=== PATIENT | male | born 1950 | race Caucasian/White ===

== ENCOUNTER 2023-02-17 09:41 | Outpatient (AMB) | payer MEDICARE, OTHER, SELFPAY ==
--- NOTE | 2023-02-17 09:46 | HO.NEPHOV_ITS ---
HPI HPI Comments History of Present Illness Details I had the privilege to seeing Carlos in follow-up of his chronic kidney disease. His hemoglobin A1c has gone up over 9. His blood sugar control continues to be suboptimal. His blood pressure is at goal. He does not have any hypoglycemias. He is just on Januvia for blood sugar. He is tolerating lisinopril and metoprolol. His serum creatinine remains stable. He does not have any hyperkalemia. He denies chest pain, shortness of breath, proximal nocturnal dyspnea, orthopnea, pedal edema or orthostatic symptoms. He avoids nonsteroidal anti-inflammatory medications. Otherwise he feels well. [facility] Medical History (Updated 02/17/23 @ 21:01 by Nimesh Lundberg MD) Diabetes mellitus Hypertension Surgical History (Updated 02/17/23 @ 09:56 by Ute Garay MA) History of hernia repair History of vasectomy History of removal of cyst History of cataract surgery Social History (Updated 02/17/23 @ 09:56 by Ute Garay MA) Alcohol intake: never Patient Tobacco Use Status: Never used Tobacco Vital Signs 02/17/23 09:48 Height 5 ft 9 in Weight 166 lb BMI 24.5 BP 174/82 H Blood Pressure Location Lt brachial Position Sitting Pulse 69 Pulse Oximetry (%) 98 Oxygen Delivery Method Room Air Physical Exam Vital Signs: Last Vital Signs Pulse 69 02/17/23 09:48 BP 174/82 H 02/17/23 09:48 Pulse Ox 98 02/17/23 09:48 Oxygen Delivery Method Room Air 02/17/23 09:48 BMI result Body Mass Index 24.5 Const General: comfortable and no acute distress Orientation/consciousness: patient oriented x3 HEENT Head: Yes normocephalic Mouth: Normal oral and palatal mucosa present Eyes EOM: EOMs intact bilaterally Neck Neck: Yes supple Resp Auscultation: clear to auscultation bilaterally Cardio Jugular venous distension: no JVD Rate: regular rate GI Palpation (GI): Soft to palpation Auscultation: normal bowel sounds General: Yes no CVA tenderness Back/Spine/Pelvis Back: no CVA tenderness Skin General skin exam: no rashes or lesions noted Neuro General: patient oriented x3 and moves all extremities Extrem General: Yes no pedal edema Assessment & Plan Assessment & Plan (1) CKD stage 3 secondary to diabetes: Code(s): E11.22 - Type 2 diabetes mellitus with diabetic chronic kidney disease; N18.30 - Chronic kidney disease, stage 3 unspecified (2) Hypertension: Code(s): I10 - Essential (primary) hypertension Qualifiers: Hypertension type: primary hypertension Qualified Code(s): I10 - Essential (primary) hypertension Plan Carlos has 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 His blood sugars are uncontrolled he is currently on Januvia. I started him on Jardiance. He is on SORAYA-inhibitor as well. I explained to him that he needs to maintain good hydration. He is on statins. He may need to be seen by Endocrinology. His blood pressure is at goal. I did not make any other medication changes today. Time spent retrieving data, patient encounter and document 29 minutes. All questions answered. Follow-up lab work ordered. Follow-up given. Orders: Orders Hemoglobin A1c Today E11.22 - Type 2 diabetes mellitus with diabetic chronic kidney disease, N18.30 - Chronic kidney disease, stage 3 unspecified Creatinine Today E11.22 - Type 2 diabetes mellitus with diabetic chronic kidney disease, I10 - Essential (primary) hypertension, N18.30 - Chronic kidney disease, stage 3 unspecified Blood Urea Nitrogen Today E11.22 - Type 2 diabetes mellitus with diabetic chronic kidney disease, I10 - Essential (primary) hypertension, N18.30 - Chronic kidney disease, stage 3 unspecified Electrolytes Today E11.22 - Type 2 diabetes mellitus with diabetic chronic kidney disease, I10 - Essential (primary) hypertension, N18.30 - Chronic kidney disease, stage 3 unspecified Medications: New empagliflozin (Jardiance) 5 mg (1/2 x 10 mg) PO DAILY 30 tabs 3RF Coding Level of Care Code Est Pt Level 4 (75150) Diagnoses CKD stage 3 secondary to diabetes E11.22; N18.30 Primary hypertension I10 Hypertension type: primary hypertension Results Reviewed Nephrology Results: No Data to Display
[2023-02-17 09:48] VITALS: BP 174/82; PULSE 69; O2SAT 98; BMI 24.5
== END 2023-02-17 10:33 | disposition home or self-care (01) ==
PROVIDERS: PCP Internal Medicine; Visit Provider Internal Medicine Nephrology
DX: E11.22 Type 2 diabetes mellitus with diabetic chronic kidney disease (principal); N18.30 Chronic kidney disease, stage 3 unspecified; I10 Essential (primary) hypertension
CPT/HCPCS: 99214

== ENCOUNTER → 2023-02-17 09:41 | Outpatient (BNVA) | payer MEDICARE, OTHER, SELFPAY | PROVIDERS: PCP Internal Medicine; Visit Provider Internal Medicine Nephrology | DX: E11.22 Type 2 diabetes mellitus with diabetic chronic kidney disease (principal); I12.9 Hypertensive chronic kidney disease with stage 1 through stage 4 chronic kidney disease, or unspecified chronic kidney disease; N18.30 Chronic kidney disease, stage 3 unspecified | CPT/HCPCS: 99212 ==

== ENCOUNTER 2023-05-24 11:53 | Outpatient (AMB) | payer MEDICARE, OTHER, SELFPAY ==
[2023-05-24 12:00] VITALS: BP 162/82; PULSE 57; O2SAT 97; BMI 23.8
--- NOTE | 2023-05-24 12:00 | HO.NEPHOV ---
HPI HPI Comments History of Present Illness Details I had the privilege to seeing Carlos in follow-up of his chronic kidney disease. His blood sugar control continues to be suboptimal but better. His blood pressure is at goal. He does not have any hypoglycemias. He is just on Januvia for blood sugar. He is tolerating lisinopril and metoprolol. His serum creatinine remains stable. He does not have any hyperkalemia. He denies chest pain, shortness of breath, proximal nocturnal dyspnea, orthopnea, pedal edema or orthostatic symptoms. He avoids nonsteroidal anti-inflammatory medications. Otherwise he feels well. [facility] Medical History (Updated 02/17/23 @ 21:01 by Nimesh Lundberg MD) Diabetes mellitus Hypertension Surgical History History of hernia repair History of vasectomy History of removal of cyst History of cataract surgery Social History Alcohol intake: never Patient Tobacco Use Status: Never used Tobacco Vital Signs 05/24/23 12:00 Height 5 ft 9 in Weight 161 lb 2 oz BMI 23.8 BP 162/82 H Blood Pressure Location Lt brachial Position Sitting Pulse 57 Pulse Source Pulse Oximeter Pulse Oximetry (%) 97 Oxygen Delivery Method Room Air Physical Exam Vital Signs: Last Vital Signs Pulse 57 05/24/23 12:00 BP 162/82 H 05/24/23 12:00 Pulse Ox 97 05/24/23 12:00 Oxygen Delivery Method Room Air 05/24/23 12:00 BMI result Body Mass Index 23.8 Const General: comfortable and no acute distress Orientation/consciousness: patient oriented x3 HEENT Head: Yes normocephalic Mouth: Normal oral and palatal mucosa present Eyes EOM: EOMs intact bilaterally Neck Neck: Yes supple Resp Auscultation: clear to auscultation bilaterally Cardio Jugular venous distension: no JVD Rate: regular rate GI Palpation (GI): Soft to palpation Auscultation: normal bowel sounds General: Yes no CVA tenderness Back/Spine/Pelvis Back: no CVA tenderness Skin General skin exam: no rashes or lesions noted Neuro General: patient oriented x3 and moves all extremities Extrem General: Yes no pedal edema Assessment & Plan Assessment & Plan (1) CKD stage 3 secondary to diabetes: Code(s): E11.22 - Type 2 diabetes mellitus with diabetic chronic kidney disease; N18.30 - Chronic kidney disease, stage 3 unspecified (2) Hypertension: Code(s): I10 - Essential (primary) hypertension Qualifiers: Hypertension type: primary hypertension Qualified Code(s): I10 - Essential (primary) hypertension Plan Carlos has 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 His blood sugars are uncontrolled he is currently on Januvia. He should continue Jardiance which I plan to increase it to 5 mg. He is on SORAYA-inhibitor as well. I explained to him that he needs to maintain good hydration. He is on statins. His blood pressure is at goal. I did not make any other medication changes today. Orders: Orders Creatinine Today E11.22 - Type 2 diabetes mellitus with diabetic chronic kidney disease, I10 - Essential (primary) hypertension, N18.30 - Chronic kidney disease, stage 3 unspecified Electrolytes Today E11.22 - Type 2 diabetes mellitus with diabetic chronic kidney disease, I10 - Essential (primary) hypertension, N18.30 - Chronic kidney disease, stage 3 unspecified Blood Urea Nitrogen Today E11.22 - Type 2 diabetes mellitus with diabetic chronic kidney disease, I10 - Essential (primary) hypertension, N18.30 - Chronic kidney disease, stage 3 unspecified Hemoglobin A1c Today E11.22 - Type 2 diabetes mellitus with diabetic chronic kidney disease, I10 - Essential (primary) hypertension, N18.30 - Chronic kidney disease, stage 3 unspecified Coding Level of Care Code Est Pt Level 4 (39916) Diagnoses CKD stage 3 secondary to diabetes E11.22; N18.30 Primary hypertension I10 Hypertension type: primary hypertension Results Reviewed Nephrology Results: No Data to Display
== END 2023-05-24 12:18 | disposition home or self-care (01) ==
PROVIDERS: PCP Internal Medicine; Visit Provider Internal Medicine Nephrology
DX: E11.22 Type 2 diabetes mellitus with diabetic chronic kidney disease (principal); N18.30 Chronic kidney disease, stage 3 unspecified; I10 Essential (primary) hypertension
CPT/HCPCS: 99214

== ENCOUNTER → 2023-05-24 11:53 | Outpatient (BNVA) | payer MEDICARE, OTHER, SELFPAY | PROVIDERS: PCP Internal Medicine; Visit Provider Internal Medicine Nephrology | DX: E11.22 Type 2 diabetes mellitus with diabetic chronic kidney disease (principal); I12.9 Hypertensive chronic kidney disease with stage 1 through stage 4 chronic kidney disease, or unspecified chronic kidney disease; N18.30 Chronic kidney disease, stage 3 unspecified | CPT/HCPCS: 99212 ==

== ENCOUNTER 2023-09-22 09:42 | Outpatient (AMB) | payer MEDICARE, OTHER, SELFPAY ==
--- NOTE | 2023-09-22 09:54 | HO.NEPHOV ---
Vital Signs 09/22/23 09:55 Height 5 ft 9 in Weight 156 lb BMI 23.0 BP 142/74 H Blood Pressure Location Lt brachial Position Sitting Pulse 73 Pulse Source Pulse Oximeter Pulse Oximetry (%) 97 Oxygen Delivery Method Room Air Intake Visit Reasons: 4 Month F/U/ LVM Office Service Coordinator Required: No Accompanied by: Self / Same As Patient Allergies No Known Allergies Allergy (Verified 09/22/23 09:56) HPI Comments Details: I had the privilege to seeing Carlos in follow-up of his chronic kidney disease. His blood sugar control continues to be suboptimal but better. His blood pressure is at goal. He does not have any hypoglycemias. He is just on Januvia for blood sugar. He is tolerating lisinopril and metoprolol. His serum creatinine had been stable. He does not have any hyperkalemia. He denies chest pain, shortness of breath, proximal nocturnal dyspnea, orthopnea, pedal edema or orthostatic symptoms. He avoids nonsteroidal anti-inflammatory medications. Otherwise he feels well. [facility] Medical History (Updated 02/17/23 @ 21:01 by Nimesh Lundberg MD) Diabetes mellitus Hypertension Surgical History History of hernia repair History of vasectomy History of removal of cyst History of cataract surgery Social History Alcohol intake: never Patient Tobacco Use Status: Never used Tobacco Physical Exam Vital Signs: Last Vital Signs Pulse 73 09/22/23 09:55 BP 142/74 H 09/22/23 09:55 Pulse Ox 97 09/22/23 09:55 Oxygen Delivery Method Room Air 09/22/23 09:55 BMI result Body Mass Index 23.0 Const General: comfortable and no acute distress Orientation/consciousness: patient oriented x3 HEENT Head: Yes normocephalic Mouth: Normal oral and palatal mucosa present Eyes EOM: EOMs intact bilaterally Neck Neck: Yes supple Resp Auscultation: clear to auscultation bilaterally Cardio Jugular venous distension: no JVD Rate: regular rate GI Palpation (GI): Soft to palpation Auscultation: normal bowel sounds General: Yes no CVA tenderness Back/Spine/Pelvis Back: no CVA tenderness Skin General skin exam: no rashes or lesions noted Neuro General: patient oriented x3 and moves all extremities Extrem General: Yes no pedal edema Results Reviewed Nephrology Results: No Data to Display Assessment & Plan Assessment & Plan (1) CKD stage 3 secondary to diabetes: Code(s): E11.22 - Type 2 diabetes mellitus with diabetic chronic kidney disease; N18.30 - Chronic kidney disease, stage 3 unspecified Category: Medical (2) Hypertension: Code(s): I10 - Essential (primary) hypertension Category: Medical Qualifiers: Hypertension type: primary hypertension Qualified Code(s): I10 - Essential (primary) hypertension Plan Carlos has 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 His blood sugars are uncontrolled he is currently on Januvia. He should continue Jardiance which I increased to 12.5 mg daily. He is on SORAYA-inhibitor as well. I explained to him that he needs to maintain good hydration. He is on statins. His blood pressure is at goal. I did not make any other medication changes today. Orders: Orders Creatinine Today E11.22 - Type 2 diabetes mellitus with diabetic chronic kidney disease, I10 - Essential (primary) hypertension, N18.30 - Chronic kidney disease, stage 3 unspecified Blood Urea Nitrogen Today E11.22 - Type 2 diabetes mellitus with diabetic chronic kidney disease, I10 - Essential (primary) hypertension, N18.30 - Chronic kidney disease, stage 3 unspecified Electrolytes Today E11.22 - Type 2 diabetes mellitus with diabetic chronic kidney disease, I10 - Essential (primary) hypertension, N18.30 - Chronic kidney disease, stage 3 unspecified Medications: Changed From empagliflozin (Jardiance) 5 mg (1/2 x 10 mg) PO DAILY 30 tabs 10RF To empagliflozin 12.5 mg (1/2 x 25 mg) PO DAILY 30 tabs 10RF Coding Level of Care Code Est Pt Level 4 (60488) Diagnoses CKD stage 3 secondary to diabetes E11.22; N18.30 Primary hypertension I10 Hypertension type: primary hypertension
[2023-09-22 09:55] VITALS: BP 142/74; PULSE 73; O2SAT 97; BMI 23.0
== END 2023-09-22 10:23 | disposition home or self-care (01) ==
PROVIDERS: PCP Internal Medicine; Visit Provider Internal Medicine Nephrology
DX: E11.22 Type 2 diabetes mellitus with diabetic chronic kidney disease (principal); N18.30 Chronic kidney disease, stage 3 unspecified; I10 Essential (primary) hypertension
CPT/HCPCS: 99214

== ENCOUNTER → 2023-09-22 09:42 | Outpatient (BNVA) | payer MEDICARE, OTHER, SELFPAY | PROVIDERS: PCP Internal Medicine; Visit Provider Internal Medicine Nephrology | DX: E11.22 Type 2 diabetes mellitus with diabetic chronic kidney disease (principal); I12.9 Hypertensive chronic kidney disease with stage 1 through stage 4 chronic kidney disease, or unspecified chronic kidney disease; N18.30 Chronic kidney disease, stage 3 unspecified | CPT/HCPCS: 99212 ==

== ENCOUNTER 2024-04-12 13:44 | Outpatient (AMB) | payer MEDICARE, OTHER, SELFPAY ==
--- NOTE | 2024-04-12 13:47 | HO.NEPHOV ---
Vital Signs 04/12/24 13:54 Height 5 ft 9 in Weight 161 lb 8 oz BMI 23.8 BP 130/80 Blood Pressure Location Lt brachial Position Sitting Pulse 66 Pulse Source Pulse Oximeter Pulse Oximetry (%) 97 Oxygen Delivery Method Room Air Intake Visit Reasons: 6 mon follow up/ Conf Hiv/Aids Care Nurse Required: No Accompanied by: Self / Same As Patient Allergies No Known Allergies Allergy (Verified 04/12/24 13:54) HPI Comments Details: Carlos was seen in follow-up of his chronic kidney disease. His blood sugar control continues to be suboptimal but better. His blood pressure is at goal. He does not have any hypoglycemias. He is tolerating lisinopril and metoprolol. His serum creatinine had been stable. He does not have any hyperkalemia. He denies chest pain, shortness of breath, proximal nocturnal dyspnea, orthopnea, pedal edema or orthostatic symptoms. He avoids nonsteroidal anti-inflammatory medications. Otherwise he feels well. [facility] Medical History (Updated 02/17/23 @ 21:01 by Nimesh Lundberg MD) Diabetes mellitus Hypertension Surgical History History of hernia repair History of vasectomy History of removal of cyst History of cataract surgery Social History Alcohol intake: never Patient Tobacco Use Status: Never used Tobacco Review of Systems Const All systems reviewed & are unremarkable except as noted in HPI and below Physical Exam Vital Signs: Last Vital Signs Pulse 66 04/12/24 13:54 BP 138/80 04/12/24 13:54 Pulse Ox 97 04/12/24 13:54 Oxygen Delivery Method Room Air 04/12/24 13:54 BMI result Body Mass Index 23.8 Const General: comfortable and no acute distress Orientation/consciousness: patient oriented x3 HEENT Head: Yes normocephalic Mouth: Normal oral and palatal mucosa present Eyes EOM: EOMs intact bilaterally Neck Neck: Yes supple Resp Auscultation: clear to auscultation bilaterally Cardio Jugular venous distension: no JVD Rate: regular rate GI Palpation (GI): Soft to palpation Auscultation: normal bowel sounds General: Yes no CVA tenderness Back/Spine/Pelvis Back: no CVA tenderness Skin General skin exam: no rashes or lesions noted Neuro General: patient oriented x3 and moves all extremities Extrem General: Yes no pedal edema Results Reviewed Nephrology Results: No Data to Display Assessment & Plan Assessment & Plan (1) CKD stage 3 secondary to diabetes: Code(s): E11.22 - Type 2 diabetes mellitus with diabetic chronic kidney disease; N18.30 - Chronic kidney disease, stage 3 unspecified Category: Medical (2) Hypertension: Code(s): I10 - Essential (primary) hypertension Category: Medical Qualifiers: Hypertension type: primary hypertension Qualified Code(s): I10 - Essential (primary) hypertension Plan Carlos has 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 His blood sugars are uncontrolled he is currently on Januvia. He should continue Jardiance 12.5 mg daily which he can increase if he finds it ok with cost. He is on SORAYA-inhibitor as well. I explained to him that he needs to maintain good hydration. He is on statins. His blood pressure is at goal. I did not make any other medication changes today. Orders: Orders Electrolytes 6 Months E11.22 - Type 2 diabetes mellitus with diabetic chronic kidney disease, I10 - Essential (primary) hypertension, N18.30 - Chronic kidney disease, stage 3 unspecified Creatinine 6 Months E11.22 - Type 2 diabetes mellitus with diabetic chronic kidney disease, I10 - Essential (primary) hypertension, N18.30 - Chronic kidney disease, stage 3 unspecified Blood Urea Nitrogen 6 Months E11.22 - Type 2 diabetes mellitus with diabetic chronic kidney disease, I10 - Essential (primary) hypertension, N18.30 - Chronic kidney disease, stage 3 unspecified Coding Level of Care Code Est Pt Level 4 (14188) Diagnoses CKD stage 3 secondary to diabetes E11.22; N18.30 Primary hypertension I10 Hypertension type: primary hypertension
--- OUTSIDE RECORDS SUMMARY | 2024-04-12 13:47 | XMS_ITS | Clinical Summary ---
Author Organization [facility] Address [address] [place], [place] [address] Phone Care Team Providers Care Soil Sampler Name Role Phone Sameer Fair MD Primary Care Provider [phone] Allergies Active Allergy Reactions Criticality Noted Date Comments Levofloxacin Other (see comments) 05/30/2020 Metformin Other (see comments) 05/30/2020 Pravastatin Other (see comments) 05/30/2020 Rosuvastatin Other (see comments) 05/30/2020 Simvastatin Other (see comments) 05/30/2020 Medications aspirin (ST KAZ) 81 MG EC tablet Take 1 tablet by mouth 1 (one) time each day Active atorvastatin (LIPITOR) 20 MG tablet Take 1 tablet by mouth 1 (one) time each day Active cholecalciferol (VITAMIN D-3) 25 MCG (1000 UT) capsule Take 1 capsule by mouth 1 (one) time each day Active famotidine (PEPCID) 20 MG tablet Take 1 tablet by mouth 1 (one) time each day Active lisinopril (PRINIVIL,ZESTR IL) 2.5 MG tablet Take 0.5 tablets by mouth 1 (one) time each day Active metoprolol tartrate (LOPRESSOR) 25 MG tablet Take 1 tablet by mouth 2 (two) times a day Active SITagliptin (JANUVIA) 50 MG tablet Take 1 tablet by mouth 1 (one) time each day Active Active Problems Problem Noted Date Diagnosed Date Renal stone 05/28/2021 Stage 3a chronic kidney disease 05/30/2020 Hypertension 05/30/2020 Hypertensive renal disease 05/30/2020 Resolved Problems Problem Noted Date Diagnosed Date Resolved Date Amblyopia 05/28/2021 05/28/2021 Anxiety 05/28/2021 05/28/2021 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 05/28/2021 Cataract 05/28/2021 05/28/2021 Disorder of peripheral nervous system 05/28/2021 05/28/2021 Internal hemorrhoids 05/28/2021 022 Supraventricular tachycardia 05/28/2021 05/28/2021 Type 2 diabetes mellitus 05/28/2021 Gastroesophageal reflux disease 05/30/2020 05/28/2021 Hyperlipidemia 05/30/2020 05/28/2021 Tachycardia 05/30/2020 05/28/2021 Injury of left upper arm 09/12/2019 Immunizations Name Administration Dates Next Due Pfizer SARS-COV-2 12/24/2020,05/29/2020,05/09/19 Pneumococcal Conjugate 13-Valent 12/08/2015,06/06 Pneumococcal Polysaccharide 04/06/2014, 1 Shingrix 01/06/2018,10/07/2017 Tdap 09/24/2021,02/15/2011 Zoster 09/16/2011 Family History Relation Status Comments Father Mother Social History Tobacco Use Types Packs/Day Years Used Date Smoking Tobacco: Never Smokeless Tobacco: Never Tobacco Cessation:Counseling Given: Not Answered Alcohol Use Standard Drinks/Week Comments No 0 (1 standard drink = 0.6 oz pur e alcohol) Sex and Gender Information Value Date Recorded Sex Assigned at Not on file Legal Sex Male 4:43 PM EST Gender Identity Not on file Sexual Orientation Not on file Last Filed Vital Signs Vital Sign Reading Time Taken Comments Blood Pressure 130/80 02/15/2022 4:05 PM EST Pulse 67 02/15/2022 4:05 PM EST Temperature - - Respiratory Rate - - Oxygen Saturation 96% 10/16/2020 4:17 PM EDT Inhaled Oxygen Concentration - - Weight 76 kg (167 lb 9.6 oz) 02/15/2022 4:05 PM EST Height 172.7 cm (5' 8 ) 08/30/2019 12:00 PM EDT Body Mass Index 25.48 08/30/2019 12:00 PM EDT Plan of Treatment Health Maintenance Due Date Last Done Comments Colorectal Cancer Screening: Annual FOBT 1997 Colorectal Cancer Screening: Colonoscopy 1997 Colorectal Cancer Screening: Sigmoidoscopy 1997 Influenza Vaccine (#1) 2023 Pneumococcal Vaccine: 65+ Years Completed 12/08/2015, 07/01/2014, 04/06/2014, Additional history exists Hepatitis B Vaccine Aged Out No longe r eligible based on patient's age to complete this topic Insurance [facility] [id number] MEDICARE [facility] MEDICARE Care Teams Soil Sampler Relationship Specialty Start Date End Date Sameer Fair MD [facility] [place] PCP - General 03/17/20
[2024-04-12 13:54] VITALS: BP 130/80; PULSE 66; O2SAT 97; BMI 23.8
== END 2024-04-12 14:23 | disposition home or self-care (01) ==
PROVIDERS: PCP Internal Medicine; Visit Provider Internal Medicine Nephrology
DX: E11.22 Type 2 diabetes mellitus with diabetic chronic kidney disease (principal); N18.30 Chronic kidney disease, stage 3 unspecified; I10 Essential (primary) hypertension
CPT/HCPCS: 99214

== ENCOUNTER → 2024-04-12 13:44 | Outpatient (BNVA) | payer MEDICARE, OTHER, SELFPAY | PROVIDERS: PCP Internal Medicine; Visit Provider Internal Medicine Nephrology | DX: E11.22 Type 2 diabetes mellitus with diabetic chronic kidney disease (principal); I12.9 Hypertensive chronic kidney disease with stage 1 through stage 4 chronic kidney disease, or unspecified chronic kidney disease; N18.30 Chronic kidney disease, stage 3 unspecified; Z79.899 Other long term (current) drug therapy | CPT/HCPCS: 99212 ==

== ENCOUNTER 2024-11-06 14:12 | Outpatient (AMB) | payer MEDICARE, OTHER, SELFPAY ==
--- NOTE | 2024-11-06 14:16 | HO.NEPHOV_ITS ---
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 His blood sugar control is better & is on insulin now. His blood pressure is at goal. He does not have any hypoglycemias. He is tolerating lisinopril and metoprolol. His serum creatinine had been stable. He does not have any hyperkalemia. He denies chest pain, shortness of breath, proximal nocturnal dyspnea, orthopnea, pedal edema or orthostatic symptoms. He avoids nonsteroidal anti-inflammatory medications. Otherwise he feels well [facility] Medical History (Updated 02/17/23 @ 21:01 by Nimesh Lundberg MD) Diabetes mellitus Hypertension Surgical History History of hernia repair History of vasectomy History of removal of cyst History of cataract surgery Social History Alcohol intake: never Patient Tobacco Use Status: Never used Tobacco Review of Systems Const All systems reviewed & are unremarkable except as noted in HPI and below Physical Exam Vital Signs: Last Vital Signs Pulse 67 11/06/24 14:17 BP 130/60 11/06/24 14:17 Pulse Ox 94 11/06/24 14:17 Oxygen Delivery Method Room Air 11/06/24 14:17 BMI result Body Mass Index 23.2 Const General: comfortable and no acute distress Orientation/consciousness: patient oriented x3 HEENT Head: Yes normocephalic Mouth: Normal oral and palatal mucosa present Eyes EOM: EOMs intact bilaterally Neck Neck: Yes supple Resp Auscultation: clear to auscultation bilaterally Cardio Jugular venous distension: no JVD Rate: regular rate GI Palpation (GI): Soft to palpation Auscultation: normal bowel sounds General: Yes no CVA tenderness Back/Spine/Pelvis Back: no CVA tenderness Skin General skin exam: no rashes or lesions noted Neuro General: patient oriented x3 and moves all extremities Extrem General: Yes no pedal edema Assessment & Plan Assessment & Plan (1) CKD stage 3 secondary to diabetes: Code(s): E11.22 - Type 2 diabetes mellitus with diabetic chronic kidney disease; N18.30 - Chronic kidney disease, stage 3 unspecified Category: Medical (2) Hypertension: Code(s): I10 - Essential (primary) hypertension Category: Medical Qualifiers: Hypertension type: primary hypertension Qualified Code(s): I10 - Essential (primary) hypertension Plan Carlos has 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 His blood sugars are better controlled. He should continue Jardiance 25 mg daily. He is on SORAYA-inhibitor as well. I explained to him that he needs to maintain good hydration. He is on statins. His blood pressure is at goal. I did not make any other medication changes today. Orders: Orders Calcium 6 Months E11.22 - Type 2 diabetes mellitus with diabetic chronic kidney disease, I10 - Essential (primary) hypertension, N18.30 - Chronic kidney disease, stage 3 unspecified Phosphorus 6 Months E11.22 - Type 2 diabetes mellitus with diabetic chronic kidney disease, I10 - Essential (primary) hypertension, N18.30 - Chronic kidney disease, stage 3 unspecified Protein Creatinine Ratio, Ur 6 Months E11.22 - Type 2 diabetes mellitus with diabetic chronic kidney disease, I10 - Essential (primary) hypertension, N18.30 - Chronic kidney disease, stage 3 unspecified Electrolytes 6 Months E11.22 - Type 2 diabetes mellitus with diabetic chronic kidney disease, I10 - Essential (primary) hypertension, N18.30 - Chronic kidney disease, stage 3 unspecified Creatinine 6 Months E11.22 - Type 2 diabetes mellitus with diabetic chronic kidney disease, I10 - Essential (primary) hypertension, N18.30 - Chronic kidney disease, stage 3 unspecified Blood Urea Nitrogen 6 Months E11.22 - Type 2 diabetes mellitus with diabetic chronic kidney disease, I10 - Essential (primary) hypertension, N18.30 - Chronic kidney disease, stage 3 unspecified Creatinine Today E11.22 - Type 2 diabetes mellitus with diabetic chronic kidney disease, I10 - Essential (primary) hypertension, N18.30 - Chronic kidney disease, stage 3 unspecified Protein Creatinine Ratio, Ur Today E11.22 - Type 2 diabetes mellitus with diabetic chronic kidney disease, I10 - Essential (primary) hypertension, N18.30 - Chronic kidney disease, stage 3 unspecified Blood Urea Nitrogen Today E11.22 - Type 2 diabetes mellitus with diabetic chronic kidney disease, I10 - Essential (primary) hypertension, N18.30 - Chronic kidney disease, stage 3 unspecified Coding Level of Care Code Est Pt Level 4 (25534) Diagnoses CKD stage 3 secondary to diabetes E11.22; N18.30 Primary hypertension I10 Hypertension type: primary hypertension
[2024-11-06 14:17] VITALS: BP 130/60; PULSE 67; O2SAT 94; BMI 23.2
--- OUTSIDE RECORDS SUMMARY | 2024-11-06 15:27 | XMS_ITS | Clinical Summary ---
Author Organization [facility] Address [address] [place], [place] [address] Phone Care Team Providers Care Medical Billing And Coding Specialist Name Role Phone Sameer Fair MD Primary Care Provider [phone] Allergies Active Allergy Reactions Criticality Noted Date [...] Injury of left upper arm 09/12/2019 Immunizations Immunization Administration Dates Next Due Pfizer SARS-COV-2 12/24/2020,05/29/2020,05/09/19 [...] Cancer Screening: Sigmoidoscopy 1997 Influenza Vaccine (#1) 2024 Pneumococcal Vaccine: 50+ Years Completed 12/08/2015, 07/01/2014, 04/06/2014, Additional history exists Pneumococcal Vaccine: Peds (0 to 5 Years) and At-Risk Patients (6 to 49 Years) Discontinued 12/08/2015, 07/01/2014, 04/06/2014, Additional history exists Hepatitis B Vaccine Aged Out No longe r eligible based on patient's age to complete this topic Insurance [facility] Medicare [facility] Medicare Care Teams Medical Billing And Coding Specialist Relationship Specialty Start Date End Date Sameer Fair MD [facility] [place] PCP - General 03/17/20
== END 2024-11-06 14:38 | disposition home or self-care (01) ==
LOC: HO.HKAS 14:13
PROVIDERS: PCP Internal Medicine; Visit Provider Internal Medicine Nephrology
DX: E11.22 Type 2 diabetes mellitus with diabetic chronic kidney disease (principal); N18.30 Chronic kidney disease, stage 3 unspecified; I10 Essential (primary) hypertension
CPT/HCPCS: 99214

== ENCOUNTER 2024-11-06 14:12 | Outpatient (REF) | payer MEDICARE, OTHER, SELFPAY ==
[2024-11-06 18:14] LABS: Blood Urea Nitrogen 32 mg/dL (9-16); Estimated Glomerular Filt Rate 39
[2024-11-06 18:33] LABS: Total Protein Urine Random < 7 mg/dL (<12)
== END 2024-11-06 14:13 | disposition home or self-care (01) ==
LOC: HO.HKASLDS 14:12
PROVIDERS: PCP Internal Medicine; Visit Provider Internal Medicine Nephrology
DX: E11.22 Type 2 diabetes mellitus with diabetic chronic kidney disease (principal); I12.9 Hypertensive chronic kidney disease with stage 1 through stage 4 chronic kidney disease, or unspecified chronic kidney disease; N18.30 Chronic kidney disease, stage 3 unspecified; Z79.899 Other long term (current) drug therapy
CPT/HCPCS: 36415; 82565; 82570; 84156; 84520; 99212